=== PATIENT | male | born 1945 | race Caucasian/White ===

== ENCOUNTER 2018-05-28 06:01 | Emergency (ER) | payer SELFPAY ==
--- NOTE | 2018-05-28 06:05 | DI.RAD.S_ITS ---
PROCEDURE: XR CHEST 1V INDICATIONS: chest pain TECHNIQUE: One view of the chest was acquired. COMPARISON: None. FINDINGS: Surgical changes and devices: None. Lungs and pleura: No pleural effusions or pneumothorax. Lungs are clear. Mediastinum: Mediastinal contours appear normal. Heart size is enlarged. Bones and chest wall: No suspicious bony lesions. Overlying soft tissues appear unremarkable. IMPRESSION: No acute process. Dictated by: Sulema Graham M.D. on 05/28/2018 at 8:58 Approved by: Sulema Graham M.D. on 05/28/2018 at 8:58
[2018-05-28 06:08] VITALS: BP 147/108; PULSE 97; RESP 24; O2SAT 96; BMI 23.1
[2018-05-28 06:18] VITALS: BP 147/108; PULSE 97; RESP 24; TEMP 36.6; O2SAT 96; BMI 23.1
[2018-05-28] MEDS: SODIUM CHLORIDE 0.9% 1,000 ML 150 ML IV (06:21)
[2018-05-28] MEDS: ASPIRIN 81 MG TAB 324 MG PO (06:21)
[2018-05-28 06:26] LABS: Add Manual Diff / Slide Review NO; Basophils Percent Auto 0.7 % (0-2); Eosinophils Percent Auto 2.8 % (2-4); Hematocrit 45.7 % (41-53); Hemoglobin 15.6 g/dL (13.5-17.5); Lymphocytes Percent Auto 33.4 % (25-40); Mean Corpuscular Hemoglobin 32.7 PG (26-34); Mean Corpuscular Volume 96.2 fL (80-100); Monocytes Percent Auto 17.2 % (3-14); Neutrophils Absolute Auto 2000 /uL (3000-5900); Neutrophils Percent Auto 45.9 % (50-75); Platelet Count 191 X10^3/uL (150-400); Red Blood Cell Count 4.75 X10^6/uL (4.5-5.9); Red Cell Distribution Width 13.8 % (11.6-14.8); White Blood Cell Count 4.5 X10^3/uL (4.5-11.0)
[2018-05-28 06:34] LABS: Alanine Aminotransferase 43 IU/L (21-72); Albumin 4.3 g/dL (3.5-5.0); Albumin Globulin Ratio 1.4 (1.0-2.8); Alkaline Phosphatase 48 U/L (38-126); Aspartate Aminotransferase 47 IU/L (17-59); BUN Creatinine Ratio 28.9 (6-22); Bilirubin Total 0.5 mg/dL (0.2-1.3); Blood Urea Nitrogen 26 mg/dL (9-20); Calcium 9.3 mg/dL (8.4-10.2); Carbon Dioxide 30 mmol/L (22-32); Chloride 103 mmol/L (98-107); Creatine Kinase 145 U/L (55-170); Estimated Glomerular Filt Rate > 60.0 mL/min (>60); Globulin 3.1 g/dL (1.7-4.1); Glucose 89 mg/dL (80-110); HEMOLYSIS < 15 (0-50); Lipase 72 U/L (23-300); Potassium 3.9 mmol/L (3.4-5.1); Sodium 141 mmol/L (137-145); Total Protein 7.4 g/dL (6.3-8.2)
--- NOTE | 2018-05-28 06:40 | ED.CHESTPAIN ---
HPI - Chest Pain General Chief Complaint: Chest Pain Stated Complaint: Chest Pain Time Seen by Provider: 05/28/18 06:04 Source: patient Mode of arrival: ambulatory Limitations: no limitations History of Present Illness HPI narrative: Patient is a 72-year-old male here for evaluation of left-sided chest pain. Patient states that it started a couple hours ago. It is his left side. Worse with taking a deep breath. Not worse with movement or palpation. He states he does have a history of atrial fibrillation. He states he is not on any medication for this. He states he does not feel his atrial fibrillation. States that he has had what he describes as ?angina? in the past. He states this feels a little different from his ?angina? pain. Denies any prior cardiac history except for the atrial fibrillation. Related Data Allergies Allergy/AdvReac Type Severity Reaction Status Date / Time No Known Drug Allergies Allergy Verified 05/28/18 06:18 Review of Systems Constitutional Denies fatigue and Denies fever(s) Cardiovascular Reports chest pain, Denies chest pain with activity, Denies edema, Denies irregular heart rhythm, Denies leg edema, Denies palpitations and Denies dyspnea Respiratory Denies cough, Reports pain on inspiration and Denies dyspnea Gastrointestinal Gastrointestinal: Denies abdominal pain, Denies diarrhea, Denies nausea and Denies vomiting Genitourinary Denies dysuria Musculoskeletal Denies myalgias and Denies arthralgias Integumentary/Breasts Denies lesions and Denies rash Endocrine Denies fatigue and Denies palpitations Hematologic/Lymphatic Denies easy bleeding and Denies easy bruising [facility] Medical History Atrial fibrillation (Acute) Surgical History No pertinent past surgical history (Acute) Social History Smoking Status: Never smoker Exam Initial Vital Signs Initial Vital Signs: Vital Signs Pulse Rate 97 H 05/28/18 06:08 Respiratory Rate 24 05/28/18 06:08 Blood Pressure 147/108 H 05/28/18 06:08 Pulse Oximetry 96 05/28/18 06:08 Const General: cooperative, healthy appearing, comfortable, well developed, well groomed and No acute distress Orientation: alert, awake and oriented x3 HENMT Head: normal to inspection and normocephalic Chest Chest: normal inspection of the chest, normal palpation of entire chest wall, No crepitus and No tenderness Resp Effort & Inspection: normal respiratory effort Auscultation: clear to auscultation bilaterally Cardio Rate: regular rate Rhythm: abnormal rhythm irregularly irregular Heart Sounds: no murmurs Pulses: radial pulses present GI Inspection: non-distended Palpation: soft, No firm and No tender Skin Lesions: no lesions Rashes: no rashes Neuro General: alert, awake and oriented x3 Extrem General: normal to inspection and capillary refill normal Psych Appearance: grossly normal and well kempt Course Orders Ordered: ED Orders 05/28/18 06:05 XR chest 1V Stat EKG-12 Lead Stat 05/28/18 06:13 Complete Blood Count AUTO DIFF Stat Comprehensive Metabolic Panel Stat Lipase Stat Troponin & CK Cardiac Panel Stat Sodium Chloride (Normal Saline 0.9%) 1,000 mls @ 150 mls/hr IV CONT VALENTIN Last Admin: 05/28/18 06:21 Dose: 150 mls/hr Discontinued Medications Aspirin (Aspirin Chew) 324 mg PO NOW ONE Stop: 05/28/18 06:06 Last Admin: 05/28/18 06:21 Dose: 324 mg Vital Signs - 8 hr 05/28/18 06:08 05/28/18 06:18 Temperature 97.8 F Pulse Rate 97 H 97 H Respiratory Rate 24 24 Blood Pressure 147/108 H 147/108 H Pulse Oximetry 96 96 MDM - Chest Pain Lab Data Result diagrams: 05/28/18 06:13 05/28/18 06:13 Lab Results 05/28/18 Range/Units 06:13 WBC 4.5 (4.5-11.0) X10^3/uL RBC 4.75 (4.5-5.9) X10^6/uL Hgb 15.6 (13.5-17.5) g/dL Hct 45.7 (41-53) % MCV 96.2 (80-100) fL MCH 32.7 (26-34) PG MCHC 34.0 (30-36) % RDW 13.8 (11.6-14.8) % Plt Count 191 (150-400) X10^3/uL Neut % (Auto) 45.9 L (50-75) % Lymph % (Auto) 33.4 (25-40) % [place] % (Auto) 17.2 H (3-14) % Eos % (Auto) 2.8 (2-4) % Baso % (Auto) 0.7 (0-2) % Neut # (Auto) 2000 L (8039-2993) /uL Imaging Data Chest x-ray: Attestation: I personally reviewed and interpreted this imaging study as follows: My impression: Enlarged heart, no focal consolidations No pneumothorax ECG Data Attestation: I personally reviewed and interpreted this ECG as follows: Prior ECG tracings: not available for review Interpretation: Atrial fibrillation Ventricular rate of 103 Normal axis Normal QRS Normal QTC No ST T wave changes MDM Narrative Medical decision making narrative: Patient was given aspirin here in the emergency department. Labs pending. Turned over to day shift provider at change of shift to follow up on labs and disposition.
[2018-05-28 06:46] LABS: Troponin I < 0.012 ng/mL (0.01-0.034)
[2018-05-28 07:50] VITALS: BP 117/80; PULSE 113; RESP 12; O2SAT 100
--- NOTE | 2018-05-28 07:57 | PC.NURSE ---
Pt thinks pain came from l side rib fx but states pain has subsided.
--- NOTE | 2018-05-28 08:07 | PC.NURSE ---
s/w pt about no meds for his afib. hr up to 145
[2018-05-28 08:45] VITALS: BP 117/70; PULSE 130; RESP 21; O2SAT 100
[2018-05-28 08:48] LABS: Troponin I < 0.012 ng/mL (0.01-0.034)
--- NOTE | 2018-05-28 08:58 | PC.NURSE ---
Pt states is leaving at 9am with or without dc. This is told to . Pt is removed from monitor and IV dc'd per his (pt) request.
--- NOTE | 2018-05-28 09:05 | ED_ITS ---
HPI - Chest Pain General Chief Complaint: Chest Pain Stated Complaint: Chest Pain Time Seen by Provider: 05/28/18 06:04 Source: patient Mode of arrival: ambulatory Limitations: no limitations History of Present Illness HPI narrative: Emergency Medicine Physician Handoff Note Verbal report from Dr. Avila at 7:00 AM, 28/05/2018. Summary: 72-year-old male with A. fib on ASA presents with 2 hours of left- sided chest pain that is worse with deep inspiration, is not reproduced with palpation or movement, no further identifiable provoking or relieving factors. Vitals and completed studies were jointly reviewed, these are notable for: * HR 113, BP 117/80, RR 12, SaO2 100 % on room air; at 7:50 AM. * WBC 4.5, Hb 15.6, Na 141, K 3.9, total bilirubin 0.5, AST 47, ALT 43, alkaline phosphatase 48, lipase 72, troponin (6:13 AM) < 0.012 * CXR: No acute cardiopulmonary disease process. No focal infiltrate, cardiomegaly, rib fractures, or mediastinal widening, lung markings extend to the periphery bilaterally and there are no deep sulci. Radiologist's read pending. * Triage note: patient states left-sided chest pain 3/10 pain worse with inspiration that started 2 hours prior to arrival, reports history of A. fib, takes aspirin daily. Pending: repeat troponin Evaluation: I independently reviewed the prior provider's chart, nursing and triage note(s) , vitals - and when available - labs, EKGs, and imaging studies. Repeat evaluation at 8:10 AM. Patient resting comfortably. Patient notes that he had mild left-sided chest pain that is worse with deep inspiration noted upon or shortly after awakening this morning, symptoms have not fully resolved. Patient notes a previously been on rate controlled medication (unknown), but that he is not needed it subsequently. While examining the patient is heart rate was observed to range from approximately 80-130 bpm and the patient is asymptomatic throughout. Patient had an irregular irregular heart with no murmurs rubs or gallops, lungs clear to auscultation bilaterally, no chest wall tenderness to palpation. Patient notes a exercises 6 nights a week, will run 1.5 miles uphill ?3 days per week, the other 3 days per week he uses a exercise stairmaster, throughout all of this the patient has had no chest discomfort. Troponin (8:15 AM) <0.012 MDM A/P: 72-year-old male with A. fib on ASA presents with 2 hours of left-sided chest pain that is worse with deep inspiration, is not reproduced with palpation or movement, no further identifiable provoking or relieving factors. Patient with chest pain of unclear etiology. Doubt ACS given an EKG without clear ischemic changes and negative serial cardiac enzymes. Unstable angina considered, however symptoms are highly atypical, patient also has ongoing pertinent near daily exercise which is asymptomatic. While the patient has poor rate control he remained asymptomatic throughout and this appears to be a conscious decision may between the patient's primary care provider. Similarly the patient's use of aspirin without further anticoagulation was a previously reasoned decision between the patient and his PCP. Regarding these 2 issues the patient was referred back to his primary care provider to discuss whether revisiting this would be appropriate. Patient's history is highly atypical for PE, given the absence of identifiable risk factors and a unremarkable physical exam further evaluation was not presently indicated. Patient's chest x-ray is without evidence of acute pathology, and the remainder of his CBC, CMP, and lipase are within acceptable limits. As the patient was asymptomatic he was discharged with PCP follow-up recommended. Impression: chest pain (please reference below for remainder of encounter information) Related Data Allergies Allergy/AdvReac Type Severity Reaction Status Date / Time No Known Drug Allergies Allergy Verified 05/28/18 06:18 [facility] Medical History Atrial fibrillation (Acute) Surgical History No pertinent past surgical history (Acute) Social History Smoking Status: Never smoker Exam Initial Vital Signs Initial Vital Signs: Vital Signs Pulse Rate 97 H 05/28/18 06:08 Respiratory Rate 24 05/28/18 06:08 Blood Pressure 147/108 H 05/28/18 06:08 Pulse Oximetry 96 05/28/18 06:08 Course Orders Ordered: ED Orders 05/28/18 06:05 XR chest 1V Stat EKG-12 Lead Stat 05/28/18 06:13 Complete Blood Count AUTO DIFF Stat Comprehensive Metabolic Panel Stat Lipase Stat Troponin & CK Cardiac Panel Stat 05/28/18 08:15 Troponin I Stat Sodium Chloride (Normal Saline 0.9%) 1,000 mls @ 150 mls/hr IV CONT VALENTIN Last Admin: 05/28/18 06:21 Dose: 150 mls/hr Discontinued Medications Aspirin (Aspirin Chew) 324 mg PO NOW ONE Stop: 05/28/18 06:06 Last Admin: 05/28/18 06:21 Dose: 324 mg Vital Signs - 8 hr 05/28/18 06:08 05/28/18 06:18 05/28/18 07:50 Temperature 97.8 F Pulse Rate 97 H 97 H 113 H Respiratory Rate 24 24 12 Blood Pressure 147/108 H 147/108 H Blood Pressure [Left Arm] 117/80 Pulse Oximetry 96 96 100 05/28/18 08:45 Temperature Pulse Rate 130 H Respiratory Rate 21 Blood Pressure Blood Pressure [Left Arm] 117/70 Pulse Oximetry 100 MDM - Chest Pain Lab Data Result diagrams: 05/28/18 06:13 05/28/18 06:13 Lab Results 05/28/18 05/28/18 05/28/18 Range/Units 06:13 06:13 08:15 WBC 4.5 (4.5-11.0) X10^3/uL RBC 4.75 (4.5-5.9) X10^6/uL Hgb 15.6 (13.5-17.5) g/dL Hct 45.7 (41-53) % MCV 96.2 (80-100) fL MCH 32.7 (26-34) PG MCHC 34.0 (30-36) % RDW 13.8 (11.6-14.8) % Plt Count 191 (150-400) X10^3/uL Neut % (Auto) 45.9 L (50-75) % Lymph % (Auto) 33.4 (25-40) % [place] % (Auto) 17.2 H (3-14) % Eos % (Auto) 2.8 (2-4) % Baso % (Auto) 0.7 (0-2) % Neut # (Auto) 2000 L (0445-1227) /uL Sodium 141 (137-145) mmol/L Potassium 3.9 (3.4-5.1) mmol/L Chloride 103 (98-107) mmol/L Carbon Dioxide 30 (22-32) mmol/L BUN 26 H (9-20) mg/dL Creatinine 0.90 (0.66-1.25) mg/dL Estimated GFR > 60.0 (>60) mL/min BUN/Creatinine Ratio 28.9 H (6-22) Glucose 89 (80-110) mg/dL Calcium 9.3 (8.4-10.2) mg/dL Total Bilirubin 0.5 (0.2-1.3) mg/dL AST 47 (17-59) IU/L ALT 43 (21-72) IU/L Alkaline Phosphatase 48 (38-126) U/L Total Creatine Kinase 145 (55-170) U/L Troponin I < 0.012 < 0.012 (0.01-0.034) ng/mL Total Protein 7.4 (6.3-8.2) g/dL Albumin 4.3 (3.5-5.0) g/dL Globulin 3.1 (1.7-4.1) g/dL Albumin/Globulin Ratio 1.4 (1.0-2.8) Lipase 72 (23-300) U/L
--- NOTE | 2018-05-28 09:05 | PC.NURSE ---
Pt left the ED without signing AMA
--- NOTE | 2018-06-25 08:01 | PC.NURSE ---
IV fluids were started at 0630 and ended at 0855 for 300cc NS intake
== END 2018-05-28 09:06 | disposition left against medical advice (07) ==
PROVIDERS: Emergency Medicine; Emergency Provider Emergency Medicine
DX: R07.89 Other chest pain (principal)
CPT/HCPCS: 36415; 36591; 71045; 80053; 82550; 82553; 83690; 84484; 85025; 93005; 93010; 96360; 96361; 99283; 99285